=== PATIENT | female | born 1990 | race Caucasian/White ===

== ENCOUNTER 2016-10-09 09:59 | Emergency (ER) | payer MEDICAID | END 2016-10-09 10:39 | disposition home or self-care (01) | DX: K29.70 Gastritis, unspecified, without bleeding (principal); R19.5 Other fecal abnormalities ==

== ENCOUNTER 2018-03-06 17:42 | Emergency (ER) | payer MEDICAID ==
[2018-03-06 17:52] VITALS: BP 140/92
[2018-03-06 18:50] LABS: BILIRUBIN,URINE NEGATIVE (NEGATIVE); GLUCOSE, URINE (UA) NEGATIVE (NEGATIVE); KETONES,URINE (UA) NEGATIVE (NEGATIVE); LEUKOCYTE ESTERASE, URINE TRACE (NEGATIVE); NITRITE,URINE NEGATIVE (NEGATIVE); OCCULT BLOOD,URINE MODERATE (NEGATIVE); PROTEIN,URINE NEGATIVE (NEGATIVE); UROBILINOGEN,URINE 0.2 (NORMAL) E.U./dL (NORMAL)
[2018-03-06 18:52] LABS: CLARITY,URINE HAZY (CLEAR)
[2018-03-06 18:53] LABS: HCG UR QUAL NEGATIVE
[2018-03-06 18:59] LABS: BACTERIA,URINE Moderate /HPF (None Seen); RBC,URINE 0-5 /HPF (0-5); SQUAMOUS EPITHELIAL CELL,UR FEW Squamous (<= Few)
[2018-03-06] MEDS ORDERED: cephALEXin 250 MG CAPSULE PO STA (19:24)
[2018-03-06] MEDS ORDERED: NAPROXEN 250 MG TABLET PO STA (19:27)
--- NOTE | 2018-03-06 19:30 | ED Physician Documentation ---
History of Present Illness - Stated complaint Stated Complaint: BACK PX - Chief complaint Chief Complaint: General - History obtained from History obtained from: Patient - Additonal information Additional information: 28-year-old female presents the emergency department with increased urinary frequency, dysuria and pain in her lower back. The patient denies fevers, vaginal discharge, vaginal bleeding or vomiting. Symptoms are described as moderate. No other associated symptoms. No triggering factors. No relieving factors Review of Systems Constitutional: denies: Fever, Chills Eyes: denies: Discharge Ears: denies: Ear pain Nose: denies: Congestion Throat: denies: Sore throat Cardiac: denies: Chest pain / pressure Respiratory: denies: Dyspnea : reports: Dysuria, Frequency Musculoskeletal: reports: Back pain Immunocompromised: denies: Chemotherapy PD PAST MEDICAL HISTORY - Past Medical History Cardiovascular: None Respiratory: None - Past Surgical History Past Surgical History: No - Present Medications Home Medications: Ambulatory Orders Medication Instructions Recorded Confirmed Cephalexin [Keflex] 500 mg PO BID #14 capsule 03/06/18 - Allergies Allergies/Adverse Reactions: Allergies Allergy/AdvReac Type Severity Reaction Status Date / Time Penicillins Allergy Mild Rash Verified 03/06/18 17:51 - Social History Does the pt smoke?: No Smoking Status: Never smoker PD ED PE NORMAL - General General: Alert and oriented X 3, No acute distress - HEENT HEENT: Atraumatic, PERRL, EOMI, Ears normal - Cardiac Cardiac: RRR, Strong equal pulses - Respiratory Respiratory: No respiratory distress, Clear bilaterally - Abdomen Abdomen: Normal bowel sounds, Non tender, Non distended - Derm Derm: Normal color - Extremities Extremities: No deformity - Neuro Neuro: Alert and oriented X 3, No motor deficit - Psych Psych: Normal mood Results - Vitals Vitals: Vital Signs - 24 hr 03/06/18 17:48 Temperature 36.4 C L Heart Rate 91 Respiratory 20 Rate Blood Pressure 140/92 H O2 Saturation 100 Oxygen O2 Source Room air - Labs Labs: Laboratory Tests 03/06/18 18:45 Urine Color YELLOW Urine Clarity HAZY Urine pH 6.0 Ur Specific [place] 1.015 Urine Protein NEGATIVE Urine Glucose (UA) NEGATIVE Urine Ketones NEGATIVE Urine Occult Blood MODERATE H Urine Nitrite NEGATIVE Urine Bilirubin NEGATIVE Urine Urobilinogen 0.2 (NORMAL) Ur Leukocyte Esterase TRACE H Urine RBC 0-5 Urine WBC 11-25 H Ur Squamous Epith Cells FEW Squamous Urine Bacteria Moderate H Ur Microscopic Review INDICATED Urine Culture Comments INDICATED Urine HCG, Qual NEGATIVE PD MEDICAL DECISION MAKING - ED course ED course: The patient will be treated as an outpatient for an acute urinary tract infection. The patient has no clinical evidence of pyelonephritis or sepsis and appears appropriate for outpatient management. I discussed warning signs for decompensation and recommended returning to the emergency department immediately for worsening or new concerns. - Sepsis Event Vital Signs: Vital Signs - 24 hr 03/06/18 17:48 Temperature 36.4 C L Heart Rate 91 Respiratory 20 Rate Blood Pressure 140/92 H O2 Saturation 100 Oxygen O2 Source Room air Departure - Departure Disposition: Home, Self Care Clinical Impression: Acute cystitis Qualifiers: Hematuria presence: with hematuria Qualified Code(s): N30.01 - Acute cystitis with hematuria Condition: Good Instructions: ED UTI Cystitis Female Follow-Up: Bryce Franco MD [Primary Care Provider] - Within 1 week Prescriptions: Cephalexin [Keflex] 500 mg PO BID #14 capsule Comments: Please return to the emergency department for worsening symptoms or any concerns Discharge Date/Time: 03/06/18 19:36
== END 2018-03-06 19:36 | disposition home or self-care (01) ==
LOC: ED 17:42
DX: N30.01 Acute cystitis with hematuria (principal)
CPT/HCPCS: 81001; 81025; 87086; 99283; A9270; 81003; 87077; 87181